=== PATIENT | female | born 1945 | race Caucasian/White ===

== ENCOUNTER 2024-05-08 17:07 | Inpatient (IN) | payer MEDICARE ==
[~2024-05-08 17:07] MED LIST: Iopamidol 370 76% 100 ML VIAL ONE
[2024-05-08] MEDS ORDERED: Nitroglycerin 2% Ointment 1 INCH/1 GM Packet ONE (17:14)
[2024-05-08] MEDS ORDERED: Nitroglycerin 0.4 MG TAB 1 EACH ONE (17:15)
[2024-05-08 17:22] LABS: Actual Bicarbonate (HCO3v) 27.9 mEq/L (22-28); Analyzer IN Cardio CS ER; Base Excess 4.2 mEq/L (-2 - +2); Calcium, Ionized (venous) 1.07 mmol/L (1.16-1.32); Chloride (VBG) 100 mmol/L (98-106); Critical Notified Whom: harsh2; Hematocrit-VBG 31 % (36.0-47.0); Hemoglobin (Hb) 10.7 g/dL (11.7-16.1); Potassium (VBG) 3.27 mmol/L (3.70-5.30); Puncture Site Other Site; RapidComm Collect By LAB; Sodium 143 mmol/L (133-146); pH (venous) 7.481 (7.32-7.43)
[2024-05-08 17:34] LABS: #Basophils 0.07 10x3/uL (0.0-0.2); #Eosinphils 0.04 10x3/uL (0.0-0.5); #Monocytes 0.66 10x3/uL (0.0-1.1); #Neutrophils 13.71 10x3/uL (1.5-8.4); %Basophils 0.5 % (0.0-2.0); %Eosinophils 0.3 % (0.0-6.0); %Lymphocytes 3.9 % (18.0-47.0); %Monocytes 4.4 % (0.0-10.0); %Neutrophils 90.3 % (40.0-75.0); Hemoglobin 9.3 g/dL (12.0-15.5); Mean Corpuscular HGB CONC 29.1 g/dL (32.0-36.0); Mean Corpuscular Volume 75.8 fL (81.6-98.3); Mean Platelet Volume 10.2 fL (7.4-10.4); Platelet Count 351 10x3/uL (150-450); RBC Distribution Width 17.4 % (11.5-14.5); Red Blood Cell (RBC) Count 4.22 10x6/uL (3.90-5.03); White Blood Cell (WBC) Count 15.2 10x3/uL (3.5-10.5)
[2024-05-08 17:42] LABS: INR-International Normal Ratio 1.2; PTT 25.2 sec (22.0-33.0); Prothrombin Time 13.2 sec (9.5-12.1)
[2024-05-08 17:45] LABS: ALT (SGPT) 164 U/L (8-55); AST (SGOT) 105 U/L (5-34); Albumin 3.6 g/dL (3.4-4.8); Alkaline Phosphatase 112 U/L (40-110); Anion Gap 15 mmol/L (10-20); BUN (Urea Nitrogen) 24 mg/dL (9.8-20.1); Calc. Creatinine Clearance 0 mL/min (70-130); Carbon Dioxide 29 mmol/L (23-31); Chloride 103 mmol/L (98-107); Estimated GFR 68; Globulin 2.2 g/dL (2.4-3.5); Glucose 107 mg/dL (83-110); Lipase 27 U/L (8-78); Potassium 3.4 mmol/L (3.5-5.1); Protein, Total 5.8 g/dL (5.8-8.1); Sodium 144 mmol/L (136-145)
[2024-05-08 17:51] LABS: Troponin I 0.057 ng/mL (< 0.028)
[2024-05-08] MEDS ORDERED: Dextrose 50% Abboject 50 ML SYRINGE SLOW IVP PRN (18:33)
[2024-05-08] MEDS ORDERED: Insulin Lispro 100 UNIT/ML 10 ML VIAL SC PRN ×2 (18:33)
[2024-05-08] MEDS ORDERED: Glucagon 1 MG/ML KIT IM PRN (18:33)
[2024-05-08] MEDS ORDERED: Dextrose 5% in Water 1,000 ML IV PRN (18:33)
[2024-05-08] MEDS ORDERED: Enoxaparin 100 MG (1 mL) SYRINGE ONE (18:38)
[2024-05-08] MEDS ORDERED: Electrolyte Replacement Protocol 1 EACH FS SCH (18:45)
[2024-05-08] MEDS ORDERED: Melatonin 3 MG TAB PO PRN (19:24)
[2024-05-08 19:57] LABS: Troponin I 0.062 ng/mL (< 0.028)
[2024-05-08 20:34] VITALS: BMI 29.0
[2024-05-08] MEDS: Communication Order-Pharmacy FS ONE (20:44)
[2024-05-08] MEDS: Potassium Chloride 20 MEQ in Premix 1 BAG IVPB SCH (21:23)
[2024-05-08] MEDS: Magnesium 2 GM/50 ML(in water) 2 GM in Premix 1 BAG IVPB SCH (21:32)
[2024-05-08] MEDS: Metoprolol Tartrate 25 MG TAB PO SCH (21:39)
[2024-05-08] MEDS: Potassium Chloride 20 MEQ TAB PO SCH (21:39)
[2024-05-08] MEDS: Spironolactone 25 MG TAB PO SCH (21:40)
[2024-05-08] MEDS: Atorvastatin Calcium 40 MG TAB PO SCH (21:40)
[2024-05-08] MEDS: Furosemide 40 MG (4 mL) VIAL SLOW IVP SCH (21:41)
[2024-05-08] MEDS: cefTRIAXone\\ROCEPHIN 1 GM in Sodium Chloride 0.9% 100 ML IVPB SCH (21:41)
[2024-05-08] MEDS: Aspirin 325 MG TAB PO SCH (21:43)
[2024-05-08] MEDS: Lisinopril 10 MG TAB PO SCH (21:43)
[2024-05-08] MEDS: Nitroglycerin 2% Ointment 1 INCH/1 GM Packet TOP SCH (22:07)
[2024-05-08 22:38] LABS: Bilirubin Neg (Negative); Blood, Urine Negative (Negative); Clarity Clear (Clear); Glucose, Urine (Dipstick) Normal (Negative); Ketone, Urine Negative (Negative); Leukocyte Negative (Negative); Nitrite Negative (Negative); Protein, Urine (Dipstick) Negative (Neg-Trace); Urobilinogen Normal mg/dL (Less than 2)
[2024-05-08 22:46] LABS: Bacteria/HPF None Seen HPF (None Seen); RBC/HPF None Seen HPF (0-3); Squamous Epithelial 0-3 HPF (0-3); WBC/HPF None Seen HPF (0-3)
[2024-05-08 22:53] LABS: Troponin I 0.063 ng/mL (< 0.028)
[2024-05-09 03:51] LABS: Cardiac Risk 2.8 (Less than 4.5)
[2024-05-09 03:55] LABS: Troponin I 0.063 ng/mL (< 0.028)
[2024-05-09] MEDS ORDERED: Furosemide 100 MG (10 mL) VIAL SLOW IVP SCH (06:00)
[2024-05-09] MEDS: Furosemide 40 MG (4 mL) VIAL SLOW IVP SCH (06:56)
[2024-05-09] MEDS: Budesonide 0.5 MG/2 ML NEB INH SCH (07:22)
[2024-05-09] MEDS: Arformoterol 15 MCG/2 ML NEB NEB SCH (07:27)
[2024-05-09 08:37] LABS: #Eosinphils 0.19 10x3/uL (0.0-0.5); #Monocytes 0.98 10x3/uL (0.0-1.1); #Neutrophils 10.84 10x3/uL (1.5-8.4); %Basophils 0.8 % (0.0-2.0); %Eosinophils 1.4 % (0.0-6.0); %Lymphocytes 7.7 % (18.0-47.0); %Monocytes 7.4 % (0.0-10.0); %Neutrophils 82.2 % (40.0-75.0); Hematocrit 33.4 % (34.9-44.5); Hemoglobin 9.9 g/dL (12.0-15.5); Mean Corpuscular HGB CONC 29.6 g/dL (32.0-36.0); Mean Corpuscular Hemoglobin 22.4 pg (27.0-33.0); Mean Corpuscular Volume 75.7 fL (81.6-98.3); Mean Platelet Volume 9.6 fL (7.4-10.4); Platelet Count 336 10x3/uL (150-450); RBC Distribution Width 17.2 % (11.5-14.5); Red Blood Cell (RBC) Count 4.41 10x6/uL (3.90-5.03); White Blood Cell (WBC) Count 13.2 10x3/uL (3.5-10.5)
[2024-05-09] MEDS ORDERED: Metoprolol Tartrate 25 MG TAB PO SCH (09:00)
[2024-05-09] MEDS: Spironolactone 25 MG TAB PO SCH (09:11)
[2024-05-09] MEDS: Enoxaparin 80 MG (0.8 mL) SYRINGE SC SCH (09:11)
[2024-05-09] MEDS: Pantoprazole 40 MG VIAL IVP SCH (09:11)
[2024-05-09] MEDS: Aspirin Chewable 81 MG TAB PO SCH (09:11)
[2024-05-09] MEDS: FLUoxetine HCl 20 MG CAP PO SCH (09:11)
[2024-05-09 09:13] LABS: ALT (SGPT) 144 U/L (8-55); AST (SGOT) 73 U/L (5-34); Albumin 3.4 g/dL (3.4-4.8); Alkaline Phosphatase 104 U/L (40-110); Anion Gap 15 mmol/L (10-20); BUN (Urea Nitrogen) 22 mg/dL (9.8-20.1); Bilirubin, Total 0.9 mg/dL (0.2-1.2); Calc. Creatinine Clearance 60 mL/min (70-130); Carbon Dioxide 35 mmol/L (23-31); Chloride 98 mmol/L (98-107); Estimated GFR 67; Globulin 2.6 g/dL (2.4-3.5); Glucose 86 mg/dL (83-110); Potassium 2.9 mmol/L (3.5-5.1); Sodium 145 mmol/L (136-145)
[2024-05-09 10:14] LABS: Magnesium 2.4 mg/dL (1.6-2.6)
[2024-05-09] MEDS: Potassium Chloride 20 MEQ TAB PO SCH ×2 (10:30→14:23)
[2024-05-09 13:23] LABS: Potassium 3.1 mmol/L (3.5-5.1)
[2024-05-09] MEDS: Ipratropium/Albuterol 3 ML NEB EZPAP PRN (19:03)
[2024-05-09 20:01] LABS: Potassium 4.1 mmol/L (3.5-5.1)
[2024-05-10 05:50] LABS: #Basophils 0.07 10x3/uL (0.0-0.2); #Eosinphils 0.86 10x3/uL (0.0-0.5); #Neutrophils 10.45 10x3/uL (1.5-8.4); %Basophils 0.6 % (0.0-2.0); %Eosinophils 6.8 % (0.0-6.0); %Monocytes 7.1 % (0.0-10.0); %Neutrophils 82.2 % (40.0-75.0); Hematocrit 33.6 % (34.9-44.5); Hemoglobin 9.6 g/dL (12.0-15.5); Mean Corpuscular HGB CONC 28.6 g/dL (32.0-36.0); Mean Corpuscular Hemoglobin 21.9 pg (27.0-33.0); Mean Corpuscular Volume 76.5 fL (81.6-98.3); Mean Platelet Volume 10.3 fL (7.4-10.4); Platelet Count 376 10x3/uL (150-450); RBC Distribution Width 17.8 % (11.5-14.5); Red Blood Cell (RBC) Count 4.39 10x6/uL (3.90-5.03); White Blood Cell (WBC) Count 12.7 10x3/uL (3.5-10.5)
[2024-05-10 05:57] LABS: ALT (SGPT) 107 U/L (8-55); AST (SGOT) 40 U/L (5-34); Albumin 3.3 g/dL (3.4-4.8); Alkaline Phosphatase 102 U/L (40-110); Anion Gap 17 mmol/L (10-20); BUN (Urea Nitrogen) 32 mg/dL (9.8-20.1); Bilirubin, Total 0.7 mg/dL (0.2-1.2); Calc. Creatinine Clearance 47 mL/min (70-130); Carbon Dioxide 30 mmol/L (23-31); Chloride 101 mmol/L (98-107); Estimated GFR 49; Globulin 2.6 g/dL (2.4-3.5); Glucose 109 mg/dL (83-110); Iron 14 ug/dL (50-170); Iron Binding Capacity, Total 356 mcg/dL (265-497); Magnesium 2.2 mg/dL (1.6-2.6); Potassium 3.8 mmol/L (3.5-5.1); Protein, Total 5.9 g/dL (5.8-8.1); Sodium 144 mmol/L (136-145)
[2024-05-10 06:00] LABS: Iron 13 ug/dL (50-170); Iron Binding Capacity, Total 354 mcg/dL (265-497)
[2024-05-10 06:09] LABS: Anisocytosis SLIGHT = 6-15 cells (100X) (0-5/hpf); Ferritin 35.28 ng/mL (10-291); Hypochromia SLIGHT = 6-15 cells (100X) (0-5/hpf); Microcytosis SLIGHT = 6-15 cells (100X) (0-5/hpf); Ovalocytes SLIGHT = 2-5 cells (100X) (0-1/hpf); Platelet Adequacy Comment Appears Adequate
[2024-05-10] MEDS ORDERED: IRON SUCROSE COMPLEX 100 MG/5 ML SLOW IVP SCH (08:15)
[2024-05-10] MEDS ORDERED: Communication Order-Pharmacy FS SCH (08:30)
[2024-05-10] MEDS: Furosemide 20 MG TAB PO SCH (08:49)
[2024-05-10] MEDS: Carvedilol 3.125 MG TAB PO SCH ×2 (08:49→16:26)
[2024-05-10] MEDS: Sodium Ferric Gluconate 125 MG, Admixture Fee 1 EACH in Sodium Chloride 0.9% 100 ML IVPB SCH (09:58)
[2024-05-11 04:31] LABS: #Basophils 0.08 10x3/uL (0.0-0.2); #Eosinphils 1.39 10x3/uL (0.0-0.5); #Monocytes 1.16 10x3/uL (0.0-1.1); %Basophils 0.6 % (0.0-2.0); %Eosinophils 10.9 % (0.0-6.0); %Lymphocytes 5.6 % (18.0-47.0); %Monocytes 9.1 % (0.0-10.0); %Neutrophils 73.4 % (40.0-75.0); Hematocrit 34.4 % (34.9-44.5); Hemoglobin 9.7 g/dL (12.0-15.5); Mean Corpuscular HGB CONC 28.2 g/dL (32.0-36.0); Mean Corpuscular Hemoglobin 21.8 pg (27.0-33.0); Mean Corpuscular Volume 77.5 fL (81.6-98.3); Platelet Count 339 10x3/uL (150-450); RBC Distribution Width 17.8 % (11.5-14.5); Red Blood Cell (RBC) Count 4.44 10x6/uL (3.90-5.03); White Blood Cell (WBC) Count 12.8 10x3/uL (3.5-10.5)
[2024-05-11 04:40] LABS: INR-International Normal Ratio 1.2; Prothrombin Time 12.4 sec (9.5-12.1)
[2024-05-11 04:50] LABS: ALT (SGPT) 77 U/L (8-55); AST (SGOT) 26 U/L (5-34); Albumin 3.1 g/dL (3.4-4.8); Alkaline Phosphatase 97 U/L (40-110); Anion Gap 16 mmol/L (10-20); BUN (Urea Nitrogen) 28 mg/dL (9.8-20.1); Bilirubin, Total 0.6 mg/dL (0.2-1.2); Calc. Creatinine Clearance 56 mL/min (70-130); Carbon Dioxide 30 mmol/L (23-31); Chloride 101 mmol/L (98-107); Estimated GFR 64; Globulin 2.5 g/dL (2.4-3.5); Glucose 102 mg/dL (83-110); Protein, Total 5.6 g/dL (5.8-8.1); Sodium 143 mmol/L (136-145)
[2024-05-11] MEDS: Ferrous Sulfate 325 MG TAB PO SCH (06:22)
[2024-05-11] MEDS ORDERED: Adenosine 6 mg (2 mL) VIAL ONE (07:15)
[2024-05-11] MEDS ORDERED: Verapamil 5 MG/2 ML VIAL ONE (07:15)
[2024-05-11] MEDS ORDERED: Heparin 10,000 UNITS/ 10 ML VIAL ONE (07:15)
[2024-05-11] MEDS ORDERED: Lidocaine 1% (PF) 30 ML VIAL ONE (07:15)
[2024-05-11] MEDS ORDERED: Lidocaine 1% PF 5 ML VIAL ONE (07:15)
[2024-05-11] MEDS ORDERED: Nitroglycerin 50 MG/250 ML BOT 250 ML ONE (07:15)
[2024-05-11] MEDS ORDERED: Midazolam HCl 2 mg/2 ml Vial ONE (08:06)
[2024-05-11] MEDS ORDERED: fentaNYL 50 mcg/mL 1 mL Vial ONE (08:06)
[2024-05-11] MEDS ORDERED: Acetaminophen/Codeine 30-300mg Tablet PO PRN ×2 (09:03)
[2024-05-11] MEDS ORDERED: Sodium Chloride 0.9% 200 ML IV PRN (09:03)
[2024-05-11] MEDS ORDERED: Nitroglycerin 0.4 MG TAB (25 Tab Bottle) SL PRN (09:03)
[2024-05-11] MEDS ORDERED: Iopamidol 300 61% 100 ML VIAL FS ONE (10:37)
[2024-05-11] MEDS: Cefdinir 300 MG CAP PO SCH (21:03)
[2024-05-11] MEDS: Apixaban 5 MG TAB PO SCH (21:03)
[2024-05-12 05:26] LABS: #Basophils 0.06 10x3/uL (0.0-0.2); #Eosinphils 1.47 10x3/uL (0.0-0.5); #Monocytes 1.15 10x3/uL (0.0-1.1); #Neutrophils 9.77 10x3/uL (1.5-8.4); %Basophils 0.5 % (0.0-2.0); %Eosinophils 11.1 % (0.0-6.0); %Lymphocytes 5.2 % (18.0-47.0); %Monocytes 8.7 % (0.0-10.0); Hematocrit 32.9 % (34.9-44.5); Hemoglobin 9.3 g/dL (12.0-15.5); Mean Corpuscular HGB CONC 28.3 g/dL (32.0-36.0); Mean Corpuscular Hemoglobin 21.9 pg (27.0-33.0); Mean Corpuscular Volume 77.4 fL (81.6-98.3); Mean Platelet Volume 9.6 fL (7.4-10.4); Platelet Count 339 10x3/uL (150-450); RBC Distribution Width 17.8 % (11.5-14.5); Red Blood Cell (RBC) Count 4.25 10x6/uL (3.90-5.03); White Blood Cell (WBC) Count 13.2 10x3/uL (3.5-10.5)
[2024-05-12 05:39] LABS: Anion Gap 13 mmol/L (10-20); BUN (Urea Nitrogen) 22 mg/dL (9.8-20.1); Calc. Creatinine Clearance 53 mL/min (70-130); Calcium 8.9 mg/dL (7.8-10.44); Carbon Dioxide 34 mmol/L (23-31); Chloride 99 mmol/L (98-107); Estimated GFR 59; Glucose 95 mg/dL (83-110); Potassium 4.1 mmol/L (3.5-5.1); Sodium 142 mmol/L (136-145)
[2024-05-13 05:55] LABS: Anion Gap 13 mmol/L (10-20); BUN (Urea Nitrogen) 23 mg/dL (9.8-20.1); Calc. Creatinine Clearance 63 mL/min (70-130); Calcium 8.9 mg/dL (7.8-10.44); Carbon Dioxide 32 mmol/L (23-31); Chloride 99 mmol/L (98-107); Estimated GFR 72; Glucose 102 mg/dL (83-110); Sodium 140 mmol/L (136-145)
[2024-05-13] MEDS: Magnesium 2 GM/50 ML(in water) 2 GM in Premix 1 BAG IVPB SCH (09:14)
[2024-05-13] MEDS: Pantoprazole DR 40 MG TAB PO SCH (09:15)
[2024-05-14 03:58] LABS: #Monocytes 1.38 10x3/uL (0.0-1.1); #Neutrophils 10.14 10x3/uL (1.5-8.4); %Basophils 0.7 % (0.0-2.0); %Eosinophils 9.1 % (0.0-6.0); %Lymphocytes 8.7 % (18.0-47.0); %Monocytes 9.7 % (0.0-10.0); %Neutrophils 71.2 % (40.0-75.0); Hematocrit 33.5 % (34.9-44.5); Hemoglobin 9.6 g/dL (12.0-15.5); Mean Corpuscular HGB CONC 28.7 g/dL (32.0-36.0); Mean Corpuscular Hemoglobin 22.1 pg (27.0-33.0); Mean Platelet Volume 9.7 fL (7.4-10.4); Platelet Count 328 10x3/uL (150-450); RBC Distribution Width 18.9 % (11.5-14.5); Red Blood Cell (RBC) Count 4.35 10x6/uL (3.90-5.03); White Blood Cell (WBC) Count 14.2 10x3/uL (3.5-10.5)
[2024-05-14 04:09] LABS: Anion Gap 12 mmol/L (10-20); BUN (Urea Nitrogen) 22 mg/dL (9.8-20.1); Calc. Creatinine Clearance 59 mL/min (70-130); Calcium 8.9 mg/dL (7.8-10.44); Carbon Dioxide 34 mmol/L (23-31); Chloride 98 mmol/L (98-107); Estimated GFR 67; Glucose 99 mg/dL (83-110); Potassium 3.6 mmol/L (3.5-5.1); Sodium 140 mmol/L (136-145)
[2024-05-14] MEDS ORDERED: Magnesium 2 GM/50 ML(in water) 2 GM in Premix 1 BAG IVPB SCH (09:00)
[2024-05-14] MEDS: Magnesium Oxide 400 MG TAB PO SCH (20:31)
[2024-05-15 04:52] LABS: Anion Gap 14 mmol/L (10-20); BUN (Urea Nitrogen) 24 mg/dL (9.8-20.1); Calc. Creatinine Clearance 44 mL/min (70-130); Carbon Dioxide 32 mmol/L (23-31); Chloride 100 mmol/L (98-107); Estimated GFR 47; Glucose 103 mg/dL (83-110); Magnesium 2.2 mg/dL (1.6-2.6); Potassium 3.7 mmol/L (3.5-5.1); Sodium 142 mmol/L (136-145)
[2024-05-15 13:34] VITALS: BP 133/58; TEMP 97.2
[2024-05-18] MEDS ORDERED: Apixaban 5 MG TAB PO SCH (21:00)
== END 2024-05-15 13:30 | DRG 280 ==
LOC: CSHERS 17:07 → SUATTDRO 17:07 → CSHTELE 18:30
PROVIDERS: ADMIT Family Medicine; ATTEND Internal Medicine
PROC: 4A023N7 Measurement of Cardiac Sampling and Pressure, Left Heart, Percutaneous Approach (ICD-10-PCS; principal; 2024-05-11)
PROC: B2151ZZ Fluoroscopy of Left Heart using Low Osmolar Contrast (ICD-10-PCS; 2024-05-11)
PROC: B2111ZZ Fluoroscopy of Multiple Coronary Arteries using Low Osmolar Contrast (ICD-10-PCS; 2024-05-11)
DX: I13.0 Hypertensive heart and chronic kidney disease with heart failure and stage 1 through stage 4 chronic kidney disease, or unspecified chronic kidney disease (principal); I26.93 Single subsegmental thrombotic pulmonary embolism without acute cor pulmonale; I21.A1 Myocardial infarction type 2; J96.01 Acute respiratory failure with hypoxia; I50.43 Acute on chronic combined systolic (congestive) and diastolic (congestive) heart failure; J44.1 Chronic obstructive pulmonary disease with (acute) exacerbation; Z79.899 Other long term (current) drug therapy; Z98.41 Cataract extraction status, right eye; Z98.42 Cataract extraction status, left eye; F41.9 Anxiety disorder, unspecified; Z87.891 Personal history of nicotine dependence; Z66 Do not resuscitate; D50.9 Iron deficiency anemia, unspecified; N18.2 Chronic kidney disease, stage 2 (mild)
CPT/HCPCS: 36415; 36416; 71045; 71275; 80048; 80053; 80061; 81001; 82728; 82805; 83540; 83550; 83605; 83690; 83735; 83880; 84145; 84439; 84443; 84481; 84484; 85025; 85610; 85730; 87040; 93005; 93010; 93306; 93458; 93970; 94640; 94660; 94760; C1769; C1894; C9113; J0153; J0696; J1644; J1650; J1940; J2001; J2250; J2916; J3010; J3475; J3480; J3490; J7620; J7626; Q9967